=== PATIENT | female | born 1955 | race Caucasian/White ===

== ENCOUNTER 2024-03-03 11:17 | Outpatient (REF) | payer OTHER, SELFPAY | END 2024-03-03 11:18 | disposition home or self-care (01) | LOC: HO.HOSX 11:17 | PROVIDERS: Visit Provider Orthopaedic Surgery | DX: Z13.89 Encounter for screening for other disorder (principal) ==

== ENCOUNTER 2024-03-20 06:54 | Outpatient (REF) | payer OTHER, SELFPAY | END 2024-03-20 06:55 | disposition home or self-care (01) | LOC: HO.HOSX 06:54 | PROVIDERS: Visit Provider Orthopaedic Surgery | DX: Z13.89 Encounter for screening for other disorder (principal) ==

== ENCOUNTER 2024-09-08 09:50 | Outpatient (REF) | payer MEDICARE, SELFPAY | END 2024-09-08 09:51 | disposition home or self-care (01) | LOC: HO.HOSX 09:50 | PROVIDERS: Visit Provider Orthopaedic Surgery | DX: Z13.89 Encounter for screening for other disorder (principal) ==

== ENCOUNTER 2025-06-17 09:16 | Outpatient (REF) | payer MEDICARE, SELFPAY ==
--- OUTSIDE RECORDS SUMMARY | 2025-05-13 10:56 | XMS_ITS | Continuity of Care Document ---
Author Organization [facility] Address [address] [place] [address] [address] [place] [address] Phone Care Team Providers Care Silk Screen Painter Name Role Phone Alex GALARZA, MICHELE, Reji CASTILLO Unavailable U navailable Procedures Procedure Date Surgical Stockings CVR Reveal Thigh High No Charge For Services Office/Oupt E&M New Pt 45 Mins- CT & [place] Duplex Scan-extrem Veins; Comp- CT & [place] Advance Directives Directive Yes / No Effective Date File Name No Information Encounters Encounter Description Practice Location Reason(s) For Visit Diagnoses Date Provider Providers Copied on Encounter [facility], [address] [place] [address] [address], [place], [id number], [place] tel:[phone] CVR [facility] Chronic venous hypertension (idiopathic) with other complications of bilateral lower extremity 5 Alex GALARZA, JONATHAN BAUTISTA. [address] [facility] [address], [place], [place], [id number] , [place]. tel:[phone] Referring Provider: Corrine garcia MSN, LADIES' HAT TRIMMER-Kemal Beckford, [address], [place], [address]. tel:[phone] Office/Oupt E&M New Pt 45 Mins- CT & [place] [facility], [address] [facility] [address], [place], [id number], [place] tel:[phone] CVR - [place] Chronic venous hypertension (idiopathic) with other complications of bilateral lower extremityType 2 diabetes mellitus without complicationsRe stless legs syndromeEssenti al (primary) hypertensionCra mp and spasmLocalized edema 5 Alex GALARZA RVT, JONATHAN Mendoza. [address] [place] [address], Suite [facility], [facility], [place], [id number] , [place]. tel:[phone] [facility], [address] [facility] [address], [place], [id number], tel:[phone] CVR - [facility] Chronic venous hypertension (idiopathic) with other complications of bilateral lower extremity 5 Alex GALARZA RVT, JONATHAN Mendoza. [address] [facility], [facility] [address], [facility], [place], [id number] , [place]. tel:[phone] Referring Provider: Reji Johnson MD, MICHELE, JONATHAN, [address] [place] [address], [place], [address] . tel:[phone] Family History Family Member Type Diagnosis Age At Onset No Information Payers Payer name Insurance type Covered green party ID Ramiro meza(s) A[employer] Medicare CI [id number] Social History Type Description Quantity Date Captured Comments Sex Female Smoking Status No Information Chief Complaint And Reason For Visit No Information Reason For Referral Reason For Referral No Information Plan Of Treatment Date Type Action Status Goal Diet education completed Referral Ordered: Weight management: Referral to physician timeframe: 3 Months (related to Body mass index (BMI) 30.0-30.9, adult) ordered Appointment Radha Alonzo BOOKED Appointment Radha Alonzo BOOKED Appointment Radha Alonzo BOOKED Appointment Radha Alonzo BOOKED Appointment Radha Alonzo BOOKED Appointment Radha Alonzo BOOKED Appointment Radha Alonzo BOOKED Appointment Radha Alonzo BOOKED Appointment Radha Alonzo BOOKED Appointment Radha Alonzo BOOKED Appointment Radha Alonzo BOOKED Appointment Radha Alonzo BOOKED History Of Present Illness Encounter Date Complaint History Of Prese nt Illness No Information Functional Status Date Functional Assessmen t No Information Instructions Date Instruction Additional Infor jeremyion Diet education Related to Body mass index (BMI) 30.0-30.9, adult Giving Encouragement to exercise Related to Body mass index (BMI) 30.0-30.9, adult Lifestyle education Related to B cesar mass index (BMI) 30.0-30.9, adult Patient education booklet given Related to Chronic venous hypertension (idiopathic) with other complications of bilateral lower extremity Pre and post instruc tions reviewed and provided Related to Chronic venous hypertension (idiopathic) with other complications of bilateral lower extremity Assessments Type Assessment Date No Information Patient Care Teams Name Effective Dates (start - stop) Status Members No Information
--- NOTE | ~2025-06-17 | XR_ITS ---
EXAMINATION: XR KNEE 3 VIEWS BILATERAL CLINICAL INFORMATION: bilateral knee pain COMPARISON: None available. TECHNIQUE: Three views of the right and left knee. FINDINGS: Right: No fracture. Mild lateral tilting of the patella. Mild degenerative changes of the medial femorotibial compartment with joint space narrowing and small marginal osteophytes. No suprapatellar joint effusion. Small marginal osteophytes in the patellofemoral compartment. Left: Status post total knee replacement. Satisfactory alignment of the prosthetic components. No fracture. No abnormal lucency surrounding the hardware. Small suprapatellar joint effusion. XR/XR Knee Gerard 3V IMPRESSION: Right: Mild degenerative changes, more pronounced in the medial femorotibial compartment. Left: Status post total knee replacement. No evidence of complications. Electronically signed by: Sam Hernnades MD 06/17/2025 11:34 AM EDT
--- OUTSIDE RECORDS SUMMARY | 2025-06-18 09:50 | XMS_ITS | Encounter Summary ---
Author Organization [employer] Address 75 [facility] 7 [place] [address] Care Team Providers Care Concrete Craftsman Name Role Phone Corrine Garcia Primary Care Provider Unavailable Demi Olsen Unavailable Unavailable Flores Rose GALLERY OR MUSEUM CURATOR Unavailable [phone] Unavailable [phone] Bridgette Jesus MD Unavailable Janie Donald LCSW Unavailable Unav ailable Inactive/Transferred Primary Care Provider Unava ilable Inactive/Transferred Primary Care Provider Unava ilable Encounter Details Date Type Department Care Team (Late st Contact Info) Description 10/28/2023 Abstract [facility] MEDICAL [address] [place] [address] Corrine Garcia FNP Social History Tobacco Use [...] Description 06/25/2025 10:30 AM EDT Office Visit [facility] MEDICAL [address] [place] [address] Bridgette Jesus MD [address] [place] [address] 07/14/2025 10:00 AM EDT Clinical Support [facility] NUTRITION [address] [place] [address] Mamta Rider, DANIEL [address] [place] [address] documented as of this encounter Visit Diagnoses Not on filedocumented in this encounter Care Teams Concrete Craftsman Relationship Specialty Start Date End Date Corrine Garcia FNP PCP - General Family Medicine 09/14/22 08/07/24 Inactive/Transferred PCP - General 08/08/24 08/08/24 Inactive/Transferred PCP - General 12/16/24 12/16/24 Demi Olsen Community Health Worker 01/17/23 Flores Rose LICSW [address] [place] [address] Railcar Carpenter Behavioral Health 02/28/23 06/02/[address] [place] [address] Dietitian Dietitian 04/04/23 Bridgette Jesus MD [address] [place] [address] Referring Physician Internal Medicine 04/04/23 Janie Donald, KEYBOARD SPECIALIST Railcar Carpenter Behavioral Health 10/24/23 documented as of this encounter
--- OUTSIDE RECORDS SUMMARY | 2025-06-18 09:50 | XMS_ITS | Encounter Summary ---
Author Organization [employer] Address 75 [facility] 7 [place] [address] Care Team Providers Care Healthcare Insurance Sales Agent Name Role Phone Corrine Garcia Primary Care Provider Unavailable Demi Olsen Unavailable Unavailable Flores Rose INSTALLATION ENGINEER Unavailable [phone] Unavailable [phone] Bridgette Jesus MD Unavailable Janie Donald LCSW Unavailable Unav ailable Inactive/Transferred Primary Care Provider Unava ilable Inactive/Transferred Primary Care Provider Unava ilable Reason for Visit * Reason Comments Med Refill Encounter Details Date Type Department Care Team (Late st Contact Info) Description 09/12/2023 Refill [facility] MEDICAL [address] [place] [address] Corrine Garcia FNP Prediabetes Social History Tobacco [...] Description 06/25/2025 10:30 AM EDT Office Visit [facility] MEDICAL [address] [place] [address] Bridgette Jesus MD [address] [place] [address] 07/14/2025 10:00 AM EDT Clinical Support [facility] NUTRITION [address] [place] [address] [place] [address] documented as of this encounter Visit Diagnoses Diagnosis Prediabetes Other abnormal glucose documented in this encounter Care Teams Healthcare Insurance Sales Agent Relationship Specialty Start Date End Date Corrine Garcia FNP PCP - General Family Medicine 09/14/22 08/07/24 Inactive/Transferred PCP - General 08/08/24 08/08/24 Inactive/Transferred PCP - General 12/16/24 12/16/24 Demi Olsen Community Health Worker 01/17/23 Flores Rose LICSW [address] [place] [address] Websphere Message Broker Developer Behavioral Health 02/28/23 06/02/[address] [place] [address] Dietitian Dietitian 04/04/23 Bridgette Jesus MD [address] [place] [address] Referring Physician Internal Medicine 04/04/23 Janie Donald LCSW Websphere Message Broker Developer Behavioral Health 10/24/23 documented as of this encounter
--- OUTSIDE RECORDS SUMMARY | 2025-06-18 09:50 | XMS_ITS | Encounter Summary ---
Author Organization [employer] Address [address] [place] [address] Care Team Providers Care Tire Shop Mechanic Name Role Phone Corrine Garcia Primary Care Provider Unavailable Demi Olsen Unavailable Unavailable Flores Rose SUPERVISOR ASSEMBLY AND PACKING Unavailable [phone] Unavailable [phone] Bridgette Jesus MD Unavailable Janie Donald LCSW Unavailable Unav ailable Inactive/Transferred Primary Care Provider Unava ilable Inactive/Transferred Primary Care Provider Unava ilable Reason for Visit * Reason Onset Date Comments RTT 11/29/2023 Encounter Details Date Type Department Care Team (Late st Contact Info) Description 11/29/2023 Telephone [facility] MEDICAL [address] [place] [address] Corrine Garcia FNP RTT Social History Tobacco [...] 06/25/2025 10:30 AM EDT Office Visit [facility] MEDICAL [address] [place] [address] Bridgette Jesus MD [address] [place] [address] 07/14/2025 10:00 AM EDT Clinical Support [facility] NUTRITION [address] [place] [address] Mamta Rider, DANIEL [address] [place] [address] documented as of this encounter Visit Diagnoses Not on filedocumented in this encounter Care Teams Tire Shop Mechanic Relationship Specialty Start Date End Date Corrine Garcia FNP PCP - General Family Medicine 09/14/22 08/07/24 Inactive/Transferred PCP - General 08/08/24 08/08/24 Inactive/Transferred PCP - General 12/16/24 12/16/24 Demi Olsen Health Worker 01/17/23 Flores Rose LICSW [address] [place] [address] Cloth Bleaching Range Operator Chief Behavioral Health 02/28/23 06/02/[address] [place] [address] Dietitian Dietitian 04/04/23 Bridgette Jesus MD [address] [place] [address] Referring Physician Internal Medicine 04/04/23 Janie Donald LCSW Cloth Bleaching Range Operator Chief Behavioral Health 10/24/23 documented as of this encounter
--- OUTSIDE RECORDS SUMMARY | 2025-06-18 09:50 | XMS_ITS | Encounter Summary ---
Author Organization [employer] Address [address] [place] [address] 7 [place] [address] Care Team Providers Care Muffler Installer Name Role Phone Corrine Garcia SUPERVISOR RECORD PRESS Primary Care Provider Unavailable Demi Olsen Unavailable Unavailable Flores Rose CROP NUTRITION SCIENTIST Unavailable [phone] Unavailable [phone] Bridgette Jesus MD Unavailable Janie Donald LCSW Unavailable Unav ailable Inactive/Transferred Primary Care Provider Unava ilable Inactive/Transferred Primary Care Provider Unava ilable Reason for Visit * Reason Comments Med Change Request Encounter Details Date Type Department Care Team (Late st Contact Info) Description 05/28/2024 Mary Bella [facility] MEDICAL [address] [place] [address] Bridgette Jesus MD [address] [place] [address] Prediabetes; Class 1 obesity due to excess [...] Office Visit [facility] MEDICAL [address] [place] [address] Bridgette Jesus MD [address] [place] [address] 07/14/2025 10:00 AM EDT Clinical Support [facility] NUTRITION [address] [place] [address] Mamta Rider, DANIEL [address] [place] [address] documented as of this encounter Visit Diagnoses Diagnosis Prediabetes Other abnormal glucose Class 1 obesity due to excess calories with serious comorbidity and body mass index (BMI) of 30.0 to 30.9 in adult documented in this encounter Additional Health Concerns Assessment Noted Time PHQ-9 Depression Total Score: 2 05/07/20 2:04 PM EDT documented as of this encounter Care Teams Muffler Installer Relationship Specialty Start Date End Date Corrine Garcia FNP PCP - General Family Medicine 09/14/22 08/07/24 Inactive/Transferred PCP - General 08/08/24 08/08/24 Inactive/Transferred PCP - General 12/16/24 12/16/24 Demi Olsen Community Health Worker 01/17/23 Flores Rose LICSW [address] [place] [address] Contact Manager Behavioral Health 02/28/23 06/02/[address] [place] [address] Dietitian Dietitian 04/04/23 Bridgette Jesus MD [address] [place] [address] Referring Physician Internal Medicine 04/04/23 Janie Donald LCSW Contact Manager Behavioral Health 10/24/23 documented as of this encounter
--- OUTSIDE RECORDS SUMMARY | 2025-06-18 09:50 | XMS_ITS | Clinical Summary ---
Author Organization [employer] Address [address] [place] [address] 7 [place] [address] Care Team Providers Care Special Equipment Technician Name Role Phone Raúl, Demi Unavailable Unavailable Mamta Rider RD Unavailable [phone] Bridgette Jesus MD Unavailable Janie DonaldW [...] mouth Once per day. 1 Active Methylcobalamin (Q73-[id number]) 1 MG chewable tablet Active omega-3 (Fish Oil) 1000 MG capsule 1 capsule in the morning. Active oxyCODONE (Roxicodone) 15 MG immediate release tablet Per pt rx'd by her paint tinter [place] Dr. Reji Pablo 2 Active [...] MORNING 90 tablet 1 4 Active Nystop 767948 UNIT/GM powder APPLY TOPICALLY THREE TIMES DAILY [...] mg at a 90 MME per [place] MIXER WHIPPED TOPPING, this clinician would not advise any further med that could enhance OCCUPATIONAL THERAPY TEACHER depression for her safety (e.g no benzodiazepine). [...] with anxiety 09/28/2022 Overview (05/07/2024): Lost her Pleon in 2021. Has support from daughter and [...] antiviral treatment, if after hours please contact motion graphics artist provider-- they can assist with rx. Return [...] Team Description 06/08/2025 10:20 AM EDT Telemedicine [address] [address] Bridgette Jesus MD Prediabetes (Primary Dx); Class 1 obesity due to excess calories with serious comorbidity and body mass index (BMI) of 30.0 to 30.9 in adult 05/19/2025 12:15 PM EDT Clinical Support [address] Class 1 obesity due to excess calories without serious comorbidity with body mass index (BMI) of 30.0 to 30.9 in adult (Primary Dx); Pre-diabetes 05/19/2025 Travel 05/11/[address] No Show 05/06/[address] [address] Bridgette Jesus MD Prediabetes; Class 1 obesity due to excess calories with serious comorbidity and body mass index (BMI) of 30.0 to 30.9 in adult 05/06/2025 Refill [facility] MED[facility] [address] [place] [address] Pat Wilkins MD 04/07/[address] [address] PcpShayne Unassigned RX needs PA from Last [...] Description 06/25/2025 10:30 AM EDT Office Visit [facility] MEDICAL [address] [place] [address] Bridgette Jesus MD [address] [place] [address] 07/14/2025 10:00 AM EDT Clinical Support [facility] NUTRITION [address] [place] [address] [place] [address] Health Maintenance Due Date Last Done Comments [...] screening. COMPARISON: Patient refers prior mammograms at [facility] more than 10 years ago. Those institutions [...] Benign. Lay letter mailed to patient. WSN: [id number] Ordering Physician: Corrine Garcia Dictated By: Dawson Pizarro MD Dictated Date/Time: 12/12/24 11:37 am Reviewed By: Dawson Pizarro MD Signed By: Dawson Pizarro MD Signed Date/Time: 12/12/24 11:37 am Transcribed By: CSB Lens Mounter Date/Time: 12/12/24 11:28 am Birads: Procedure Note Donotuseinterpreter, Image - 12/12/2024 PROCEDURE: MM Digital Mammo Screening CLINICAL INDICATION: 69 years old Female for screening. COMPARISON: Patient refers prior mammograms at [facility] 10 years ago. Those institutions have no [...] Benign. Lay letter mailed to patient. WSN: [id number] Ordering Physician: Corrine Garcia Dictated By: Dawson Pizarro MD Dictated Date/Time: 12/12/24 11:37 am Reviewed By: Dawson Pizarro MD Signed By: Dawson Pizarro MD Signed Date/Time: 12/12/24 11:37 am Transcribed By: CSB Lens Mounter Date/Time: 12/12/24 11:28 am Birads: Corrine Garcia SALVAGER HELPER IMG BI PROCEDURES Bita l Result * [...] 6:05 AM EDT Performed at: 01 - [facility] [id number] Photographic Equipment Technician: Radha Brito MD, Phone: [phone] Corrine GRIGGS LAB BLOOD ORDERABLES F inal [...] DENTAL - HSN FULL (MEDICAID) Care Teams Special Equipment Technician Relationship Specialty Start Date End Date Demi Olsen [facility] Health Worker 01/17/[address] [place] [address] Dietitian Dietitian 04/04/23 Bridgette Jesus MD [address] [place] [address] Referring Physician Internal Medicine 04/04/23 Janie Donald LCSW Roller Die Cutting Machine Operator Behavioral Health 10/24/23
--- OUTSIDE RECORDS SUMMARY | 2025-06-18 09:50 | XMS_ITS | Patient Health Record ---
Author Organization [facility] [place] Address [address] [place] [address] Care Team Providers Care Mining Plant Operator Name Role Phone Tico English MD Primary Care Provider Jerry Rooney Unavailable [phone] Allergies Allergen (clinical drug ingredient) Drug/Non Drug [...] Problem Status W/U Status Risk Notes Problem Hammer toe (189309631) Hammer toe (735.4) Active confirmed Problem Onychomycosis (276928573) Onychomycosis (110.1) Active confirmed Problem Pain in limb (38096075) Pain in Limb (729.5) Active confirmed Plan Of Treatment Pending Test Test Name Order Date [id number] NAIL, 6 OR MORE 06/30/2013 [id number] NAIL, 6 OR MORE 09/29/2013 Insurance Providers Payer Name Payer Address Payer Phone Subscriber Number Group Number Insured Name Patient Relationship to Insured Coverage Start Date Coverage End Date Medicare National Govt Sv[employer] [address] [place] [address] [id number] Radha Alonzo Self - patient is the insured 4 Medical (General) History Medical History History ICD Code broken bones - right foot colitis depression diverticulosis fibromyalgia headaches/migraines reflux chronic sinusitis measles mumps chicken pox transfusions Surgical History Surgery Date(Month/Year) foot surgery - right - bone fx 1989 hysterectomy 1979 gall bladder 2011
--- OUTSIDE RECORDS SUMMARY | 2025-06-18 09:50 | XMS_ITS | Encounter Summary ---
Author Organization [employer] Address 75 [facility] 7 [place] [address] Care Team Providers Care Cotton Baler Name Role Phone Corrine Garcia Primary Care Provider Unavailable Demi Olsen Unavailable Unavailable Flores Rose CARTON MAKING MACHINIST Unavailable Mamta Rider RD Unavailable [phone] Bridgette Jesus MD Unavailable Janie Donald LCSW Unavailable Unav ailable Inactive/Transferred Primary Care Provider Unava ilable Inactive/Transferred Primary Care Provider Unava ilable Encounter Details Date Type Department Care Team (Late st Contact Info) Description 09/24/2023 Orders Only Shayne [facility] DENTAL [address] [place] [address] Kali Salinas LLD [address] [place] [address] Social History Tobacco Use Types Packs/Day Years [...] Description 06/25/2025 10:30 AM EDT Office Visit [facility] MEDICAL [address] [place] [address] Bridgette Jesus MD [address] [place] [address] 07/14/2025 10:00 AM EDT Clinical Support [facility] NUTRITION [address] [place] [address] Mamta Rider, DANIEL [address] [place] [address] documented as of this encounter Visit Diagnoses Not on filedocumented in this encounter Care Teams Cotton Baler Relationship Specialty Start Date End Date Corrine Garcia FNP PCP - General Family Medicine 09/14/22 08/07/24 Inactive/Transferred PCP - General 08/08/24 08/08/24 Inactive/Transferred PCP - General 12/16/24 12/16/24 Demi Olsen Community Health Worker 01/17/23 Flores Rose LICSW [address] [place] [address] Calender Machine Operator Helper Behavioral Health 02/28/23 06/02/[address] [place] [address] Dietitian Dietitian 04/04/23 Bridgette Jesus MD [address] [place] [address] Referring Physician Internal Medicine 04/04/23 Janie Donald LCSW Calender Machine Operator Helper Behavioral Health 10/24/23 documented as of this encounter
== END 2025-06-17 09:17 | disposition home or self-care (01) ==
LOC: HO.HOSX 09:16
PROVIDERS: Visit Provider Orthopaedic Surgery
DX: M25.562 Pain in left knee (principal); M25.561 Pain in right knee
CPT/HCPCS: 73562; 99212

== ENCOUNTER 2025-06-17 10:05 | Outpatient (AMB) | payer MEDICARE, SELFPAY ==
--- NOTE | 2025-06-17 10:22 | MHC.OFFVIS ---
Vital Signs 06/17/25 10:30 Height 5 ft 7 in Weight 187 lb BMI 29.3 Intake Visit Reasons: Bilateral knee discomfort Intake Note: Radha is a 69 year old female who presents with complaints of intermittent discomfort in both of her knees. She did undergo left total knee replacement surgery several years ago. She states that she recently fell when she tripped over a gate. She did have increased discomfort initially. She states that that discomfort has improved. She is due to have a vein procedure? over the next few weeks. Allergies No Known Allergies Allergy (Verified 06/17/25 10:24) Medication List - Last Reconciled 06/17/25 by Enrique Boss MD azithromycin mg PO benzonatate 100 mg PO TID PRN blood sugar diagnostic (Online Agilityuch Ultra Test strips) As directed blood-glucose meter (Online Agilityuch Ultra2 Meter) As directed fluoxetine mg PO gabapentin 300 mg PO BEDTIME hydrochlorothiazide 25 mg PO QAM lancets (OneTouch Delica Plus Lancet) As directed lisinopril 20 mg PO DAILY metaxalone 800 mg PO TID-QID PRN pantoprazole 40 mg PO DAILY rosuvastatin 40 mg PO DAILY topiramate 25 mg PO QAM trazodone 50 mg PO BEDTIME PRN Physical Exam Vital Signs: BMI result Body Mass Index 29.3 Const Other: Well-nourished well-developed very friendly female awake alert and oriented x3 in no acute distress Extrem Other: Right knee examination shows a minimal effusion, palpable crepitus with range of motion, pain with range of motion, no instability Left knee examination shows that the surgical incision is well healed, no erythema, full active extension and flexion to 120 degrees, her patella tracks well Results Reviewed Results Reviewed: X-rays of the patient's right knee taken today show moderate to severe joint space narrowing, subchondral sclerosis, no acute bony abnormalities X-rays of the patient's left knee taken today show a total knee arthroplasty in good position with no signs of loosening, no acute bony abnormalities Assessment & Plan Assessment & Plan (1) Left knee pain: Code(s): M25.562 - Pain in left knee Category: Medical (2) Right knee pain: Code(s): M25.561 - Pain in right knee Category: Medical Plan Ms. Alonzo continues to do well after undergoing left total knee replacement surgery in 2020. She does know to take antibiotics before any dental work. She does have intermittent right knee pain due to degenerative joint disease. We will hold off on an injection at this time. She will follow up with her vascular specialist as scheduled. She will contact me prior to her follow-up appointment in 2-3 months should any questions or concerns arise. Feel free to call me at any time should questions regarding her orthopedic management arise. I spent 21 minutes in reviewing the patient's records and imaging studies, seeing the patient and documenting in the medical record. Orders: Orders XR Knee Gerard 3V Today M25.561 - Pain in right knee, M25.562 - Pain in left knee Coding Level of Care Code Est Pt Level 3 (17634) Complex EM visit Add On G2211 Diagnoses Left knee pain M25.562 Right knee pain M25.561
[2025-06-17 10:30] VITALS: BMI 29.3
--- OUTSIDE RECORDS SUMMARY | 2025-06-17 11:35 | XMS_ITS | Patient Health Record ---
Author Organization [facility] [place] Address [address] [place] [address] Care Team Providers Care Gear Inspector Name Role Phone Tico English MD Primary Care Provider Jerry Rooney Unavailable [phone] Allergies Allergen (clinical drug ingredient) Drug/Non Drug Allergy documented on EMR Reaction Allergy Type Onset Date Status meperidine Demerol throw up Drug Allergy Active erythromycin Erythromycin headache/stomac h Drug Allergy Active sulfa headache/stomac h Drug Allergy Active Penicillin headache/stomac h Drug Allergy Active morphine Morphine throat closes Drug Allergy Act rachel adhesive tape swell up Drug Allergy Act rachel Reason For Referral No Information Medications Medication SIG (Take, Route, Fr equency, Duration) Notes Start Date End Date Status NexIUM 40 MG 1 packet mixed with 15 ml of water Orally Once a day; Duration: 30 day(s) Active OxyCONTIN 30 mg/10mg 1 tablet Orally 7 daily/5 daily Active PROzac 20 MG 1 capsule in the mor jhony Orally Once a day; Duration: 30 day(s) Active Vitamin D 1000 UNIT 1 tablet Orally Once a day; Duration: 30 day(s) Active Aspir-81 81 MG 1 tablet Orally Once a day; Duration: 30 day(s) Active Problems Problem Type SNOMED Code ICD Code Onset Dates Problem Status W/U Status Risk Notes Problem Information temporarily unavailable Hammer toe (735.4) Active confirmed Problem Information temporarily unavailable Onychomycosis (110.1) Active confirmed Problem Information temporarily unavailable Pain in Limb (729.5) Active confirmed Plan Of Treatment Pending Test Test Name Order Date [id number] NAIL, 6 OR MORE 06/30/2013 [id number] NAIL, 6 OR MORE 09/29/2013 Insurance Providers Payer Name Payer Address Payer Phone Subscriber Number Group Number Insured Name Patient Relationship to Insured Coverage Start Date Coverage End Date Medicare National Govt Sv[employer] [address] [place] [address] [id number] Radha Alonzo Self - patient is the insured 4 Medical (General) History Medical History History ICD Code broken bones - right foot colitis depression diverticulosis fibromyalgia headaches/migraines reflux chronic sinusitis measles mumps chicken pox transfusions Surgical History Surgery Date(Month/Year) foot surgery - right - bone fx 1989 hysterectomy 1979 gall bladder 2011
--- OUTSIDE RECORDS SUMMARY | 2025-06-17 11:35 | XMS_ITS | Encounter Summary ---
Author Organization [employer] Address [address] [facility] 7 [place] [address] Care Team Providers Care Senior Sales Compensation Analyst Name Role Phone Corrine Garcia Primary Care Provider Unavailable Demi Olsen Unavailable Unavailable Flores Rose CRAB BACKER Unavailable [phone] Unavailable [phone] Bridgette Jesus MD Unavailable Janie Donald LCSW Unavailable Unav ailable Inactive/Transferred Primary Care Provider Unava ilable Inactive/Transferred Primary Care Provider Unava ilable Reason for Visit * Reason Comments Med Refill Encounter Details Date Type Department Care Team (Late st Contact Info) Description 09/12/2023 Refill [facility] MEDICAL [address] [place] [address] Corrine Garcia FNP Prediabetes Social History Tobacco Use Types Packs/Day Years Used Date Smoking Tobacco: Never Smokeless Tobacco: Never Alcohol Use Standard Drinks/Week Comments Yes 0 (1 standard drink = 0.6 oz pur e alcohol) occationally Housing Stability Answer Date Recorded What is your housing situation today? I have иванmarcin myers 08/13/[address] you li ve. Do you have problems with any of the following? None of the above 08/13/2023 Food Insecurity Answer Date Recorded Within the past 12 months, y ou worried that your food would run out before you got money to buy more: Never True 08/13/2023 Within the past 12 months,th e food you bought just didn't last and you didn't have enough money to get more: Never True Transportation Answer Date Recorded In the past 12 months, has l ack of transportation kept you from medical appts, meetings, work or from getting things needed for daily living? No 08/13/2023 Utilities Answer Date Recorded In the past 12 months, has t he electric, gas, oil or water company threatened to shut off services in your home? No 08/13/2023 Depression Answer Date Recorded Patient Health Questionnaire-2 Score 0 08/13/2023 Education Answer Date Recorded What is the highest level of school you have completed or the highest degree you have received? GED or equivalent Comments Unknown Sex and Gender Information Value Date Recorded Sex Assigned at Female 09/14/2022 10:38 AM EST Legal Sex Female 8:37 PM EDT Gender Identity Female 09/14/2022 10:38 AM EST Sexual Orientation Choose not to disclose 2022 8:24 AM EST Occupation Industry Job Start Date Job End Date Retired Not on file Not on file Not on file documented as of this encounter Miscellaneous Notes * Telephone Encounter - ANSON Eddy - 09/12/2023 1:29 PM EST Already sent. documented in this encounter Plan of Treatment Upcoming Encounters Date Type Department Care Team (Late st Contact Info) Description 06/25/2025 10:30 AM EDT Office Visit [facility] MEDICAL [address] [place] [address] Bridgette Jesus MD [address] [place] [address] 07/14/2025 10:00 AM EDT Clinical Support [facility] NUTRITION [address] [place] [address] [place] [address] documented as of this encounter Visit Diagnoses Diagnosis Prediabetes Other abnormal glucose documented in this encounter Care Teams Senior Sales Compensation Analyst Relationship Specialty Start Date End Date Corrine Garcia FNP PCP - General Family Medicine 09/14/22 08/07/24 Inactive/Transferred PCP - General 08/08/24 08/08/24 Inactive/Transferred PCP - General 12/16/24 12/16/24 Demi Olsen Community Health Worker 01/17/23 Flores Rose LICSW [address] [place] [address] Fuel System Maintenance Supervisor Behavioral Health 02/28/23 06/02/[address] [place] [address] Dietitian Dietitian 04/04/23 Bridgette Jesus MD [address] [place] [address] Referring Physician Internal Medicine 04/04/23 Janie Donald LCSW Fuel System Maintenance Supervisor Behavioral Health 10/24/23 documented as of this encounter
--- OUTSIDE RECORDS SUMMARY | 2025-06-17 11:35 | XMS_ITS | Encounter Summary ---
Author Organization [employer] Address [address] [facility] 7 [place] [address] Care Team Providers Care Geologist Petroleum Name Role Phone Corrine Garcia Primary Care Provider Unavailable Demi Olsen Unavailable Unavailable Flores Rose BLEACHER LARD Unavailable [phone] Unavailable [phone] Bridgette Jesus MD Unavailable Janie Donald LCSW Unavailable Unav ailable Inactive/Transferred Primary Care Provider Unava ilable Inactive/Transferred Primary Care Provider Unava ilable Encounter Details Date Type Department Care Team (Late st Contact Info) Description 09/24/2023 Orders Only Shay[facility] D[facility] [address] [place] [address] Kali Salinas LLD [address] [place] [address] Social History Tobacco Use Types Packs/Day Years Used Date Smoking Tobacco: Never Smokeless Tobacco: Never Alcohol Use Standard Drinks/Week Comments Yes 0 (1 standard drink = 0.6 oz pur e alcohol) occationally Housing Stability Answer Date Recorded What is your housing situation today? I have иван myers 08/13/[address] you [...] on file documented as of this encounter Plan of Treatment Upcoming Encounters Date Type Department Care Team (Late st Contact Info) Description 06/25/2025 10:30 AM EDT Office Visit [facility] MEDICAL [address] [place] [address] Bridgette Jesus MD [address] [place] [address] 07/14/2025 10:00 AM EDT Clinical Support [facility] NUTRITION [address] [place] [address] Mamta Rider, DANIEL [address] [place] [address] documented as of this encounter Visit Diagnoses Not on filedocumented in this encounter Care Teams Geologist Petroleum Relationship Specialty Start Date End Date Corrine Garcia FNP PCP - General Family Medicine 09/14/22 08/07/24 Inactive/Transferred PCP - General 08/08/24 08/08/24 Inactive/Transferred PCP - General 12/16/24 12/16/24 Demi Olsen Community Health Worker 01/17/23 Flores Rose LICSW [address] [place] [address] Other Spatial Scientist Behavioral Health 02/28/23 06/02/[address] [place] [address] Dietitian Dietitian 04/04/23 Bridgette Jesus MD [address] [place] [address] Referring Physician Internal Medicine 04/04/23 Janie Donald LCSW Other Spatial Scientist Behavioral Health 10/24/23 documented as of this encounter
--- OUTSIDE RECORDS SUMMARY | 2025-06-17 11:35 | XMS_ITS | Encounter Summary ---
Author Organization [employer] Address [address] [place] [address] [address] [place] [address] Care Team Providers Care Cafe Manager Name Role Phone Corrine Garcia CHIEF NURSING OFFICER Primary Care Provider Unavailable Demi Olsen Unavailable Unavailable Flores Rose QUARRY EXTRACTION WORKER Unavailable Mamta Rider RD Unavailable [phone] Bridgette Jesus MD Unavailable Janie Donald LCSW Unavailable Unav ailable Inactive/Transferred Primary Care Provider Unava ilable Inactive/Transferred Primary Care Provider Unava ilable Reason for Visit * Reason Comments Med Change Request Encounter Details Date Type Department Care Team (Late st Contact Info) Description 05/28/2024 Mary Bella [facility] MEDICAL [address] [place] [address] Bridgette Jesus MD [address] [place] [address] Prediabetes; Class 1 obesity due to excess calories with serious comorbidity and body mass index (BMI) of 30.0 to 30.9 in adult Social History Tobacco Use Types Packs/Day Years Used Date Smoking Tobacco: Never Smokeless Tobacco: Never Alcohol Use Standard Drinks/Week Comments Yes 0 (1 standard drink = 0.6 oz pur e alcohol) occationally Depression Answer Date Recorded Patient Health Questionnaire-9 Score 2 05/07/2024 Patient Health Questionnaire-9 Score 2 05/07/2024 Last PHQ-9: Questionnaire Data Not on file 0 05/07/2024 Housing Stability Answer Date Recorded What is your housing situation today? I have иван sing 08/13/[address] you li [...] Answer Date Recorded Patient Health Questionnaire-2 Score 2 05/07/2024 Education Answer Date Recorded What is the [...] Description 06/25/2025 10:30 AM EDT Office Visit [facility] MEDICAL [address] [place] [address] Bridgette Jesus MD [address] [place] [address] 07/14/2025 10:00 AM EDT Clinical Support [facility] NUTRITION [address] [place] [address] Mamta Rider, DANIEL [address] [place] [address] documented as of this encounter Visit Diagnoses Diagnosis Prediabetes Other abnormal glucose Class 1 obesity due to excess calories with serious comorbidity and body mass index (BMI) of 30.0 to 30.9 in adult documented in this encounter Additional Health Concerns Assessment Noted Time PHQ-9 Depression Total Score: 2 05/07/20 2:04 PM EDT documented as of this encounter Care Teams Cafe Manager Relationship Specialty Start Date End Date Corrine Garcia FNP PCP - General Family Medicine 09/14/22 08/07/24 Inactive/Transferred PCP - General 08/08/24 08/08/24 Inactive/Transferred PCP - General 12/16/24 12/16/24 Demi Olsen Community Health Worker 01/17/23 Flores Rose LICSW [address] [place] [address] Creative Writing Professor Behavioral Health 02/28/23 06/02/[address] [place] [address] Dietitian Dietitian 04/04/23 Bridgette Jesus MD [address] [place] [address] Referring Physician Internal Medicine 04/04/23 Janie Donald LCSW Creative Writing Professor Behavioral Health 10/24/23 documented as of this encounter
--- OUTSIDE RECORDS SUMMARY | 2025-06-17 11:35 | XMS_ITS | Encounter Summary ---
Author Organization [employer] Address [address] [place] [address] Care Team Providers Care Product Development Worker Name Role Phone Corrine Garcia Primary Care Provider Unavailable Demi Olsen Unavailable Unavailable Flores Rose TABLE RUNNER Unavailable [phone] Unavailable [phone] Bridgette Jesus MD Unavailable Janie Donald LCSW Unavailable Unav ailable Inactive/Transferred Primary Care Provider Unava ilable Inactive/Transferred Primary Care Provider Unava ilable Reason for Visit * Reason Onset Date Comments RTT 11/29/2023 Encounter Details Date Type Department Care Team (Late st Contact Info) Description 11/29/2023 Telephone [facility] MEDICAL [address] [place] [address] Corrine Garcia FNP RTT Social History Tobacco Use Types Packs/Day Years [...] Description 06/25/2025 10:30 AM EDT Office Visit [facility] MEDICAL [address] [place] [address] Bridgette Jesus MD [address] [place] [address] 07/14/2025 10:00 AM EDT Clinical Support [facility] NUTRITION [address] [place] [address] Mamta Rider, DANIEL [address] [place] [address] documented as of this encounter Visit Diagnoses Not on filedocumented in this encounter Care Teams Product Development Worker Relationship Specialty Start Date End Date Corrine Garcia FNP PCP - General Family Medicine 09/14/22 08/07/24 Inactive/Transferred PCP - General 08/08/24 08/08/24 Inactive/Transferred PCP - General 12/16/24 12/16/24 Demi Olsen Health Worker 01/17/23 Flores Rose LICSW [address] [place] [address] Pad Hand Behavioral Health 02/28/23 06/02/[address] [place] [address] Dietitian Dietitian 04/04/23 Bridgette Jesus MD [address] [place] [address] Referring Physician Internal Medicine 04/04/23 Janie Donald LCSW Pad Hand Behavioral Health 10/24/23 documented as of this encounter
--- OUTSIDE RECORDS SUMMARY | 2025-06-17 11:35 | XMS_ITS | Encounter Summary ---
Author Organization [employer] Address [address] [facility] 7 [place] [address] Care Team Providers Care Welfare Administrator Name Role Phone Corrine Garcia Primary Care Provider Unavailable Demi Olsen Unavailable Unavailable Flores Rose QUALITY CONTROL PROJECTIONIST Unavailable [phone] Unavailable [phone] Bridgette Jesus MD Unavailable Janie Donald LCSW Unavailable Unav ailable Inactive/Transferred Primary Care Provider Unava ilable Inactive/Transferred Primary Care Provider Unava ilable Encounter Details Date Type Department Care Team (Late st Contact Info) Description 10/28/2023 Abstract Shayne [facility] MEDICAL [address] [place] [address] Corrine Garcia FNP Social History Tobacco Use Types Packs/Day Years Used Date Smoking Tobacco: Never Smokeless Tobacco: Never Alcohol Use Standard Drinks/Week Comments Yes 0 (1 standard drink = 0.6 oz pur e alcohol) occationally Housing Stability Answer Date Recorded What is your housing situation today? I have иван louis 08/13/[address] you li [...] Description 06/25/2025 10:30 AM EDT Office Visit [facility] MEDICAL [address] [place] [address] Bridgette Jesus MD [address] [place] [address] 07/14/2025 10:00 AM EDT Clinical Support [facility] NUTRITION [address] [place] [address] Mamta Rider, DANIEL [address] [place] [address] documented as of this encounter Visit Diagnoses Not on filedocumented in this encounter Care Teams Welfare Administrator Relationship Specialty Start Date End Date Corrine Garcia FNP PCP - General Family Medicine 09/14/22 08/07/24 Inactive/Transferred PCP - General 08/08/24 08/08/24 Inactive/Transferred PCP - General 12/16/24 12/16/24 Demi Olsen Community Health Worker 01/17/23 Flores Rose LICSW [address] [place] [address] Trombone Slide Assembler Behavioral Health 02/28/23 06/02/[address] [place] [address] Dietitian Dietitian 04/04/23 Bridgette Jesus MD [address] [place] [address] Referring Physician Internal Medicine 04/04/23 Janie Donald, CRAFT COORDINATOR Trombone Slide Assembler Behavioral Health 10/24/23 documented as of this encounter
--- OUTSIDE RECORDS SUMMARY | 2025-06-17 11:36 | XMS_ITS | Clinical Summary ---
Author Organization [employer] Address [address] [place] [address] [address] [place] [address] Care Team Providers Care Second Baker Name Role Phone Raúl, Demi Unavailable Unavailable Mamta Rider RD Unavailable [phone] Bridgette Jesus MD Unavailable Janie DonaldW Unavailable Unav ailable Allergies Active Allergy Reactions Criticality Noted Date Comments Cortisone Anaphylaxis High 09/28/2022 Other reaction(s): Unknown Hydrocortisone 06/28/2023 Fentanyl 11/16/2017 Other reaction(s): swelling, Unknown Lidocaine 11/16/2017 Other reaction(s): Swelling, Unknown Meperidine Low 09/28/2022 Other reaction(s): Vomitting Methadone Medium 11/16/2017 Other reaction(s): Unknown, Vomitting Methylprednisolone 09/28/2022 Other reaction(s): Unknown Morphine Anaphylaxis High 11/16/2017 Other reaction(s): Unknown, Vomitting, Throat Swelling Oxybutynin Rash Low 11/16/2017 Other reaction(s): rash, nausea, Unknown Penicillins Rash Low 11/16/2017 Other reaction(s): Unknown Other reaction(s): rash Rofecoxib Rash Low 09/28/2022 Other reaction(s): Rash, Unknown Sulfa Antibiotics Rash Low 09/28/2022 Other reaction(s): rash, nausea Sulfamethoxazole-Trimethoprim Rash Low 2017 Other reaction(s): rash, nausea, Unknown Tolterodine Rash Low 11/16/2017 Other reaction(s): rash, nausea, Unknown Medications * This document contains information received from the source organization and may not represent a complete record from that organization. albuterol 108 (90 Base) MCG/ACT inhaler 2 puffs. 5 Active cholecalciferol (Vitamin D3) 25 MCG (1000 UT) tablet Take 1,000 Units by mouth Once per day. 1 Active Methylcobalamin (H82-[id number]) 1 MG chewable tablet Active omega-3 (Fish Oil) 1000 MG capsule 1 capsule in the morning. 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 Reji Pablo 2 Active Ascorbic Acid (vitamin C) 1000 MG tablet Take 1,000 mg by mouth Once per day. Active Diclofenac Sodium 1 % gelIndications:A rthritis pain of hand APPLY 1 DOSE TOPICALLY IF NEEDED AT BEDTIME (FOR HAND ARTHITIC PAIN). 100 g 1 3 Active metaxalone (Skelaxin) 800 MG tablet Take 800 mg by mouth 4 times daily. 4 Active lisinopril 20 MG tabletIndication s:Primary hypertension TAKE 1 TABLET BY MOUTH EVERY DAY IN THE MORNING 90 tablet 1 4 Active Nystop 605106 UNIT/GM powder APPLY TOPICALLY THREE TIMES DAILY 60 g 11 4 Active cetirizine (ZyrTEC) 10 MG tabletIndication s:Allergic rhinitis due to animal hair and dander Take 1 tablet (10 mg) by mouth Once per day. 30 tablet 11 4 Active cimetidine (Tagamet) 200 MG tablet TAKE 1 TABLET (200 MG) BY MOUTH 4 TIMES DAILY. 360 tablet 1 4 Active rosuvastatin (Crestor) 40 MG tabletIndication s:Hypercholester emia TAKE ONE TABLET BY MOUTH DAILY AT 9 AM EVERY MORNING 90 tablet 11 4 Active Incruse Ellipta 62.5 MCG/ACT aerosol powderIndication s:Mild persistent asthma without complication INHALE 1 PUFF BY MOUTH ONCE DAILY BEFORE BREAKFAST 30 each 11 4 Active pantoprazole (ProtoNix) 40 MG EC tabletIndication s:Gastroesophage al reflux disease without esophagitis TAKE ONE TABLET BY MOUTH DAILY AT 9 AM (DO NOT CRUSH, CHEW OR SPLIT) 90 tablet 1 4 Active Additional Information Patient not taking.Reported on 03/13/2025 topiramate (Topamax) 25 MG tabletIndication s:Nonintractable headache, unspecified chronicity pattern, unspecified headache type TAKE ONE TABLET BY MOUTH EVERY MORNING 90 tablet 1 4 Active buPROPion XL (Wellbutrin XL) 150 MG 24 hr tabletIndication s:Depression with anxiety TAKE ONE TABLET BY MOUTH DAILY AT 9 AM EVERY MORNING (DO NOT CRUSH, CHEW OR SPLIT) 90 tablet 11 4 Active gabapentin (Neurontin) 300 MG capsuleIndicatio ns:Fibromyalgia TAKE ONE CAPSULE BY MOUTH DAILY AT 9 PM BEDTIME 90 capsule 4 Active FLUoxetine (PROzac) 20 MG capsuleIndicatio ns:Other specified anxiety disorders TAKE TWO CAPSULES (40 MG) BY MOUTH DAILY AT 9 AM 180 capsule 11 4 Active hydroCHLOROthiaz jonas (HYDRODiuril) 25 MG tabletIndication s:Essential (primary) hypertension TAKE ONE TABLET BY MOUTH DAILY AT 9 AM EVERY MORNING 90 tablet 11 4 Active traZODone (Desyrel) 50 MG tabletIndication s:Depression with anxiety,Other specified anxiety disorders TAKE 1 TABLET (50 MG) BY MOUTH IF NEEDED AT BEDTIME FOR DEPRESSION OR SLEEP. 90 tablet 4 Active metFORMIN XR (Glucophage-XR) 500 MG 24 hr tabletIndication s:Prediabetes TAKE TWO TABLETS (1,000 MG) BY MOUTH TWICE DAILY @12PM & 5PM (AT NOON AND IN THE EVENING -DO NOT CRUSH, CHEW OR SPLIT) 360 tablet 11 4 Active Liraglutide -Weight Management (Saxenda) 18 MG/3ML solution pen-injectorIndi cations:Prediabe hannah,Class 1 obesity due to excess calories with serious comorbidity and body mass index (BMI) of 30.0 to 30.9 in adult Inject 0.5 mL (3 mg) under the skin Once per day. Start at 0.6 mg daily X 1 week, and increase daily dose by 0.6 mg weekly until max dose of 3 mg is reached 3 mL 1 5 Active Additional Information Patient not taking.Reason: Other, Reported on 05/22/2025 Active Problems Problem Noted Date Diagnosed Date Intertrigo 05/07/2024 Situational anxiety 04/06/2024 Overview (04/06/2024): After hours page x2 at 9 and 9:17 a.m. today from Radha requesting sedative for feeling overwhelmed r/t daughter's admission to cardiac ICU last night. Confirmed she has other adults with her if needs to go to hospital today. Has past emotional trauma r/t ICU ( ). Confirmed no SI/HI. Noting that pt already has rx for hydroxyzine but other meds she also takes regularly for pain, depression, anxiety, insomnia, advised she can use 25 mg of hydroxyzine once to no more than twice daily if needed to help reduce anxiety (since she already takes 50 mg at night for anxiety related insomnia) should not exceed total 100 mg daily. Clinical decisionmaking: Noting [facility] and multiple prescribers including pain management (per pt for her chronic knee pain) [place] rx's oxycodone 15 mg at a 90 MME per [facility] DIRECTOR OF ANALYTICAL DEVELOPMENT, this clinician would not advise any further med that could enhance ALLERGY NURSE depression for her safety (e.g no benzodiazepine). Even hydroxyzine is on the BEERS criteria list and recommended for this pt to keep regular PCP appointments for reviewing all meds with a goal of some weaning/deprescribing in patient age 68. Should also have narcan at home and family/friends aware of it and how to use if needed. Do not drive (ask others to take her) if need to go back to hospital today or while taking the hydroxyzine: sedation precautions. Encouraged Radha to make/keep in person appt with PCP for f/up. Confirmed she is taking the new bupropion rx that was started for her on 03 28 2024 and she agrees, states will call tomorrow to schedule that. May also benefit from continued sessions with therapist at this time (noting previous sessions in chart history). Radha agrees and has no further questions/concerns at visit conclusion. Class 1 obesity due to exces s calories with serious comorbidity and body mass index (BMI) of 30.0 to 30.9 in adult 11/12/2023 Overview (02/11/2024): Continue to meet with Nutrition monthly Watching closely types of foods, and portion. Ok to continue with Diego Will start Metformin given concurrent prediabetes. Assessment & Plan (02/01/2024 1:24 PM EDT): Tolerated ozempic in the past. Has discussed starting wegovy. Would like to start now due to better insurance coverage. Aware of potential SE, aware of national shortage. Plan to start wegovy at 0.25mg dose x4 weeks, fu via telephone visit at that point. Engaged with nutrition team. Walks for activity. Assessment & Plan (11/12/2023 8:05 PM EST): 67 y o woman with BMI currently 30.79 kg/m2 reports wt today of 185 lbs and was 193 lbs per chart at her 08/13/23 office visit. States wants to go back on a med like the Ozempic her healthplan will not cover now. She states this is because she is prediabetic. Discussed that Ozempic is for diabetes and Wegovy is the weight management counterpart for Ozempic. Pt states she thinks her healthplan will cover Wegovy, discussed with her that some healthplans are no longer paying for any anorexic medications and others are but with prior authorization required. Pt would like to try Wegovy and hopes her plan will provide for her. Discussed mechanism of action, risks/benefits and alternative and pt would like the Wegovy rx'd tonight. Notes she has some constipation due to her chronic use of oxycodone but that it wasn't worse actually better when she was on the Ozempic. Encouraged daily walking, optimal hydration with water and fresh vegs as great source of increased dietary fiber. Agrees to keep scheduled followup visit and will check with office in a.m. re likely need for prior authorization for the rx ordered tonight. Starting dose of Wegovy discussed with increase per prescribing guidelines if well tolerated with no adverse s.e. Pt agrees to plan. No further questions or concerns at visit conclusion. Grief 03/07/2023 Polypharmacy 11/06/2022 Overview (11/06/2022): Multiple meds prescribed by outside prescribers - many on the Beers criteria Will work with Karime to simplify her medication regimen. Depression with anxiety 09/28/2022 Overview (05/07/2024): Lost her Pelon in 2021. Has support from daughter and grandson who are with her right now. Denies SI/HI. Has [place] Help line Doing well Fibromyalgia 09/28/2022 Hypercholesteremia 09/28/2022 Overview (11/06/2022): Due for labs IC (interstitial cystitis) 09/28/2022 Prediabetes 09/28/2022 Overview (05/07/2024): Well controlled on metformin Due for foot exam + retinal eye exam Recommend pneumonia 20 vaccination - given today Diverticulosis 09/28/2022 Age-related nuclear cataract of both eyes 2021 Hypertension 09/28/2022 Overview (05/07/2024): Well controlled Fungal nail infection 09/28/2022 Keratoconjunctivitis sicca 09/28/2022 Mild persistent asthma without complication 09/14 Overview (11/06/2022): Stable with [facility]ITY + incruse as needed Primary osteoarthritis of both knees 11/16/2017 Overview (11/06/2022): Recent Synavisc injection - helpful Outside prescriber of Oxycodone for pain Gabapentin new med - helpful. Chronic pain of both knees 11/16/2017 Resolved Problems Problem Noted Date Diagnosed Date Resolved Date Cough 11/29/2023 02/11/2024 Viral bronchitis 11/15/2023 02/11/2024 Assessment & Plan (11/29/2023 4:04 PM EST): Was seen by myself on 11/15 for viral bronchitis symptoms. She has been doing all of the OTC/tx options that we talked about and was feeling better for a few days. She states a few days ago the symptoms started back up, and worse this time. She is now up coughing all night long and her nose is running constantly. She states the cough is sometimes productive, sometimes not. She is not having any fever or body aches but is having alternating chills/hot. She denies CP/diff breathing but is having some shortness of breath, alice after coughing. She is eating and drinking ok. She has increased her water intake significantly. She has been urinating well. She has been taking Mucinex again, not helping; she tried Robitussin, and that is not helping either. She is having tea with honey as well. She states that before she got sick again, she had a friend over who happened to be sick. Due to the ongoing illnesses and PE today; she has inspiratory and expiratory wheezing all throughout, we will be doing a Duoneb in the office today. I have also prescribed Benzonatate for the cough as well as a Zpack for possible bacterial cause of the bronchitis. I have also ordered a CXR to r/o a pneumonia. I discussed with the pt to use her Albuterol inhaler as needed but up to every 4h for shortness of breath/wheezing. Discussed with her the red flag s/s to go to the ER including shortness of breath, diff breathing, CP, intractable fevers, etc. I did discuss with her that the abx may not cure her if this is due to a viral infection but it should start helping her feel better in 48h. I discussed with her to take the whole course. I was going to put her on steroids for anti-inflammatory; however, she has several steroid allergies on her allergy list, so we will hold off on that for now. The pt will get the XR in the next day or so. I encouraged her to continue to rest. Encouraged fluids, tea with honey, warm salt gargles, OTC cough medicine, humidifier. Follow up on Sunday if she is not feeling any better. Assessment & Plan (11/15/2023 9:55 AM EST): Couple day hx of nasal congestion, productive cough, headache, and sinus congestion. No fever/chills/body aches today. States she had slight chills the other day without fever. No CP/diff breathing/shortness of breath. No abd pain/nausea/vomiting. Eating and drinking ok. Drinking water (appx 3-16oz glasses of water a day along with tea and honey). Eating chicken soup/broth and other softer foods. No sick contacts that she can think of. Flu and Covid negative. Continue with current regimen she is doing, she is doing great! Discussed that she could use her Albuterol inhaler if the cough increases or she feels wheezy. Discussed soft foods, increased water intake (more than what she is taking in now). Discussed tea with honey. Discussed throat lozenges, Tylenol for pain. Discussed Robitussin/Mucinex for cough. Humidifier by bed at night, can just use water but Vicks works well too. Warm salt gargles. Nasal sinus spray and Flonase for sinus congestion. Discussed this is likely viral and she should start feeling better in a few days but some of the viruses have lingered 10-14d. Discussed red flag s/s to go to the ER to include CP/diff breathing/shortness of breath; fever persistent despite tx. She should follow up only as needed. Acute nonintractable headache 08/23/2023 02/11/2024 Close exposure to COVID-19 virus 08/23/2023 02/11/2024 Assessment & Plan (08/23/2023 12:50 PM EST): Currently testing negative. Mild symptoms of SALAZAR, sore throat, body aches. Supportive treatment advised at this time. Sleep, hydrate etc. to support immune system. Retest in 48 hours--If positive call clinic [facility] for antiviral treatment, if after hours please contact installation & maintenance executive provider-- they can assist with rx. Return precautions reviewed. Adjustment disorder with mix ed anxiety and depressed mood 02/28/2023 02/11/2024 Pain in right knee 09/28/2022 Allergic rhinitis 09/28/2022 02/11/2024 Prolonged Q-T interval on ECG 09/28/2022 05/07/2024 Overview (04/18/2024): Unable to view EKG in chart today, pt reports unaware of this history. Discussed avoid meds such as hydroxyzine that can prolong qt. No report of cardiac symptoms at this time. Advised follow up with PCP at next scheduled apt this month- med review and repeat EKG in office. Obesity (BMI 30-39.9) 09/28/20222023 Overview (11/06/2022): Taking Phentermine 37.5 (last prescribed by Hossein 12/06) Has met intermittently with nutrition. Has gained approx 15 lbs since the of her in the past 4 months. Encounters * This document contains information received from the source organization and may not represent a complete record from that organization. Date Type Department Care Team Description 06/08/2025 10:20 AM EDT Telemedicine [address] [address] Bridgette Jesus MD Prediabetes (Primary Dx); Class 1 obesity due to excess calories with serious comorbidity and body mass index (BMI) of 30.0 to 30.9 in adult 05/19/2025 12:15 PM EDT Clinical Support [address] Class 1 obesity due to excess calories without serious comorbidity with body mass index (BMI) of 30.0 to 30.9 in adult (Primary Dx); Pre-diabetes 05/19/2025 Travel 05/11/[address] No Show 05/06/[address] [address] Bridgette Jesus MD Prediabetes; Class 1 obesity due to excess calories with serious comorbidity and body mass index (BMI) of 30.0 to 30.9 in adult 05/06/2025 Refill [place] [facility] [address] [place] [address] Pat Wilkins MD 04/07/[address] [address] PcpShayne Unassigned RX needs PA from Last 3 Months Immunizations Immunization Administration Dates Next Due Influenza High-dose Quadriva lent Preservative Free 08/13/2023 Influenza Injectable Quadriv alant Preservative Free IIV4 MDCK 06/23/2019,08/01/2017 Influenza, IIV3, injectable 12/25/2018, 6 Moderna Covid-19 Vaccine 12+ 08/13/2023, 01/16/2022,03/10/2021,2020 Pneumococcal Conjugate PCV 20 05/07/2024 TD (adult), 2 Lf tetanus tox oid, preservative free, adsorbed 07/19/2022 Tdap 06/27/2016 Family History Medical History Relation Name Comments Pancreatic cancer Brother Graves' disease Daughter 1 htn Daughter 1 Bipolar disorder Daughter 2 Retinal detachment Father Cataracts Mother Glaucoma Mother Heart disease Mother Breast cancer Other breast cancer on maternal side not specific Diabetes Other on both sides o f family Relation Name Status Comments Brother Daughter 1 Daughter 2 Alive Father Mother Other Social History Tobacco Use Types Packs/Day Years Used Date Smoking Tobacco: Never Smokeless Tobacco: Never Tobacco Cessation:Counseling Given: Not Answered Alcohol Use Standard Drinks/Week Comments Yes 0 [...] file Not on file Not on file Last Filed Vital Signs Vital Sign Reading Time Taken Comments Blood Pressure 118/68 05/07/2024 1:55 PM EDT Pulse 84 05/07/2024 1:55 PM EDT Temperature 36.5 C (97.7 F) 05/07/2024 1:55 PM EDT Respiratory Rate 18 11/15/2023 9:28 AM EST Oxygen Saturation 97% 05/07/2024 1:55 PM EDT Inhaled Oxygen Concentration - - Weight 83 kg (183 lb) 03/13/2025 11:27 AM EDT Height 165.1 cm (5' 5 ) 02/17/2025 1:36 PM EDT Body Mass Index 30.45 02/17/2025 1:36 PM EDT Plan of Treatment Upcoming Encounters Date Type Department Care Team (Late st Contact Info) Description 06/25/2025 10:30 AM EDT Office Visit [facility] [address] [place] [address] Bridgette Jesus MD [address] [place] [address] 07/14/2025 10:00 AM EDT Clinical Support [facility] [address] [place] [address] [place] [address] Health Maintenance Due Date Last Done Comments CT Colonography 1954 Dental Oral Exam 1954 Dental Prophylaxis 1954 Dental X-Ray: Bitewings 1954 Dental X-Ray: Full Mouth 1954 FIT DNA/Cologuard 1954 FIT 1954 FOBT 1954 Sigmoidoscopy 1954 Alcohol/Substance Use Screening 1966 Zoster Vaccines (1 of 2) 2004 RSV Patients and Patients Aged 60 years or older (1 - Risk 60-74 years 1-dose series) 2014 HPV/Cotest 11/25/2020 Pap Smear 11/25/2020 11/25/2015 SDOH Screening 08/13/2024 08/13/2023 Colonoscopy 05/06/2025 05/06/2015, 05/06/2015 Colorectal Cancer Screening 05/06/2025 Depression Screening 05/07/2025 05/07/2024, 05/07/20 Diabetes: Hemoglobin A1C 05/07/2025 024, 01/07/2024, 06/15/2023, Additional history exists COVID-19 Vaccine (2024- season) 2025 08/13/2023, 01/16/2022, 03/10/2021, Additional history exists Influenza Vaccine (#1) 2025 , 06/23/2019, 12/25/2018, Additional history exists Tobacco Screening 03/13/2026 03/13/2025 Mammogram 12/05/2026 12/05/2024 Lipid Panel 01/06/2029 01/07/2024, 09/0 10/2022, 02/08/2021, Additional history exists DTaP/Tdap/Td Vaccines (3 - Td or Tdap) 07/19/2032 07/19/2022, 06/27/2016 Hepatitis C Screening Completed 01/19/2016 Pneumococcal Vaccine: 50+ Years Completed 05/07/2024 HIB Vaccines Aged Out No longer eligi ble based on patient's age to complete this topic HPV Vaccines Aged Out No longer eligi ble based on patient's age to complete this topic Hepatitis A Vaccines Aged Out No long er eligible based on patient's age to complete this topic Hepatitis B Vaccines Aged Out No long er eligible based on patient's age to complete this topic IPV Vaccines Aged Out No longer eligi ble based on patient's age to complete this topic Meningococcal B Vaccine Aged Out No l onger eligible based on patient's age to complete this topic Meningococcal Vaccine Aged Out No stu daphne eligible based on patient's age to complete this topic RSV under 20 months Aged Out No longe r eligible based on patient's age to complete this topic Rotavirus Vaccines Aged Out No longer eligible based on patient's age to complete this topic Procedures Procedure Name Priority Date/Time Associated Diagnosis Comments BI MAMMOGRAM SCREENING TOMOSYNTHESIS BILATERAL Routine 12/05/2024 1:53 PM EST POCT GLYCOSYLATED HEMOGLOBIN (HGB A1C) Routine 05/07/2024 2:08 PM EDT Prediabetes LIPID PANEL, STANDARD Routine 01/07/2024 8:54 AM EDT Hypercholesteremia HEPATITIS C ANTIBODY (EXTERNAL RESULTS ONLY) Routine 01/19/2016 11:49 AM EDT PAP SMEAR Routine 11/25/2015 12:00 AM EST HM COLONOSCOPY Routine 05/06/2015 from Last 3 Months or Most Recently Relevant to Health Maintenance Results * BI Mammogram Screening Tomosynthesis Bilateral (12/05/2024 1:53 PM EST) Anatomical Region Laterality Modality Breast Bilateral Mammography 12/05/2024 1:53 PM EST Narrative 12/12/2024 11:40 AM EST PROCEDURE: MM Digital Mammo Screening CLINICAL INDICATION: 69 years old Female for screening. COMPARISON: Patient refers prior mammograms at [facility] more than 10 years ago. Those institutions have no record of prior images. TECHNIQUE: Full field digital CC and MLO 3D tomosynthesis images of both breasts were acquired. Computer -aided detection (CAD) was utilized in the interpretation of this study. DENSITY: The breast tissue is almost entirely fatty. FINDINGS: Normal RIGHT axillary lymph nodes noted. [LEFT breast is slightly smaller than the RIGHT, likely congenitally. Small numbers of scattered, benign appearing microcalcifications are noted bilaterally. No masses, suspicious groups of microcalcifications, areas of architectural distortion, skin thickening or nipple retraction are seen in either breast. IMPRESSION: 1. No mammographic evidence of malignancy. RECOMMENDATION: Annual mammographic screening BI-RADS 2 - Benign. Lay letter mailed to patient. WSN: [id number] Ordering Physician: Corrine Garcia Dictated By: Dawson Pizarro MD Dictated Date/Time: 12/12/24 11:37 am Reviewed By: Dawson Pizarro MD Signed By: Dawson Pizarro MD Signed Date/Time: 12/12/24 11:37 am Transcribed By: CSB Miter Sawyer Date/Time: 12/12/24 11:28 am Birads: Procedure Note Donotuseinterpreter, Image - 12/12/2024 PROCEDURE: MM Digital Mammo Screening CLINICAL INDICATION: 69 years old Female for screening. COMPARISON: Patient refers prior mammograms at [facility] 10 years ago. Those institutions have no record of prior images. TECHNIQUE: Full field digital CC and MLO 3D tomosynthesis images ofth breasts were acquired. Computer -aided detection (CAD) was utilized inthe interpretation of this study. DENSITY: The breast tissue is almost entirely fatty. FINDINGS: Normal RIGHT axillary lymph nodes noted. [LEFT breast is slightly smallerthan the RIGHT, likely congenitally. Small numbers of scattered, benign appearing microcalcifications arenoted bilaterally. No masses, suspicious groups of microcalcifications, areas ofarchitectural distortion, skin thickening or nipple retraction are seen in eitherbreast. IMPRESSION: 1. No mammographic evidence of malignancy. RECOMMENDATION: Annual mammographic screening BI-RADS 2 - Benign. Lay letter mailed to patient. WSN: [id number] Ordering Physician: Corrine Garcia Dictated By: Dawson Pizarro MD Dictated Date/Time: 12/12/24 11:37 am Reviewed By: Dawson Pizarro MD Signed By: Dawson Pizarro MD Signed Date/Time: 12/12/24 11:37 am Transcribed By: CSB Miter Sawyer Date/Time: 12/12/24 11:28 am Birads: Corrine Garcia HOB MILL OPERATOR IMG BI PROCEDURES Bita l Result * POCT glycosylated hemoglobin (Hgb A1c) (05/07/2024 2:08 PM EDT) Hemoglobin A1C 5.7 4.0 - 6.0 % Blood Capillary blood specimen / Unknown 05/07/2024 2:08 PM EDT Corrine GRIGGS POINT OF CARE TEST ENT ER/EDIT ORDERABLES Final Result * (ABNORMAL) Lipid Panel, Standard (01/07/2024 8:54 AM EDT) Cholesterol, Total 217(H) 100 - 199 mg/dL [facility] 1 Triglycerides 198(H) 0 - 149 mg/dL [facility] 1 HDL Cholesterol 52 >39 mg/dL [facility] 1 VLDL Cholesterol Craig 35 5 - 40 mg/dL [facility] 1 LDL Chol Calc (NIH) 130(H) 0 - 99 mg/dL [facility] 1 Blood Venous blood specimen / Unknown 01/07/2024 8:54 AM EDT 01/07/2024 Narrative [facility] 1 - 01/08/2024 6:05 AM EDT Performed at: 01 - [facility] [id number] Artist'S Manager: Radha Brito MD, Phone: [phone] Corrine GRIGGS LAB BLOOD ORDERABLES F inal Result [facility] 1 * Hepatitis C Antibody (01/19/2016 11:49 AM EDT) Hepatitis C Antibody Nonreactive Blood 01/19/2016 11:4 9 AM EDT Historical Provider POINT OF CARE TEST ENTER/ EDIT ORDERABLES Final Result * Pap Smear (11/25/2015 12:00 AM EST) Swab Historical Provider LAB CYTOLOGY ORDERABLES F inal Result * Hm Colonoscopy (05/06/2015) Colonoscopy 10 year recall Gastritis Historical Provider MD HEALTH MAINTENANCE Final Result from Last 3 Months or Most Recently Relevant to Health Maintenance Insurance AETNA MEDICARE REPLACEMENT HSN FULL DENTAL - AETNA DENTAL DENTAL - HSN FULL (MEDICAID) Care Teams Second Baker Relationship Specialty Start Date End Date Demi Olsen [facility] Health Worker 01/17/[address] [place] [address] Dietitian Dietitian 04/04/23 Bridgette Jesus MD [address] [place] [address] Referring Physician Internal Medicine 04/04/23 Janie Donald LCSW Wheel Truing Machine Tender Behavioral Health 10/24/23
== END 2025-06-17 10:53 | disposition home or self-care (01) ==
LOC: HO.HOS 10:05
PROVIDERS: Visit Provider Orthopaedic Surgery
DX: M25.562 Pain in left knee (principal); M25.561 Pain in right knee; Z96.652 Presence of left artificial knee joint
CPT/HCPCS: 99213; G2211

== ENCOUNTER → 2025-06-17 10:20 | Outpatient (BNV) | payer MEDICARE, SELFPAY | PROVIDERS: Visit Provider Radiology Body Imaging | DX: M25.561 Pain in right knee (principal); M25.562 Pain in left knee; Z96.652 Presence of left artificial knee joint | CPT/HCPCS: 73562 ==